=== PATIENT | male | born 1950 | race Caucasian/White ===

== ENCOUNTER → 2017-01-12 | Outpatient (CLI) | payer MEDICARE | END | disposition home or self-care (01) | LOC: CT 15:35 | DX: M51.26 Other intervertebral disc displacement, lumbar region (principal); Z98.1 Arthrodesis status ==

== ENCOUNTER → 2017-01-23 | Outpatient (CLI) | payer MEDICARE ==
[2017-01-23 11:48] LABS: BASO # 0.1 10*3/uL (0.0-0.1); BASO % 0.6 % (0.0-1.0); EOS # 0.5 10*3/uL (0.0-0.4); HEMATOCRIT 40.3 % (42.0-52.0); HEMOGLOBIN 13.4 g/dl (14.0-18.0); LYMPH # 2.3 10*3/uL (1.3-4.4); LYMPH % 22.7 % (27.0-41.0); MEAN CELL VOLUME 80.3 fl (80.0-94.0); MEAN CORPUSCULAR HGB 26.7 pg (27.0-31.0); MEAN CORPUSCULAR HGB CONC 33.3 g/dl (33.0-37.0); MEAN PLATELET VOLUME 9.1 fl (9.6-12.3); MONO # 0.9 10*3/uL (0.1-1.0); MONO % 8.3 % (3.0-9.0); NEUT # 6.4 10*3/uL (2.3-7.9); NEUT % 62.8 % (47.0-73.0); PLATELET COUNT AUTOMATED 344 10*3/uL (130-400); RED BLOOD COUNT 5.02 10*6/uL (4.50-5.90); WHITE BLOOD COUNT 10.2 10*3/uL (4.8-10.8)
== END ==
LOC: LAB 11:18
PROVIDERS: Physician Assistant
DX: M65.88 Other synovitis and tenosynovitis, other site (principal); M25.541 Pain in joints of right hand; M25.441 Effusion, right hand

== ENCOUNTER → 2017-04-14 | Outpatient (CLI) | payer MEDICARE ==
[2017-04-14 09:46] LABS: BASO # 0.1 10*3/uL (0.0-0.1); BASO % 0.8 % (0.0-1.0); EOS # 0.4 10*3/uL (0.0-0.4); EOS % 3.5 % (1.0-4.0); HEMATOCRIT 38.5 % (42.0-52.0); HEMOGLOBIN 12.7 g/dl (14.0-18.0); LYMPH # 4.1 10*3/uL (1.3-4.4); LYMPH % 32.6 % (27.0-41.0); MEAN CORPUSCULAR HGB 26.4 pg (27.0-31.0); MEAN PLATELET VOLUME 8.7 fl (9.6-12.3); MONO # 0.8 10*3/uL (0.1-1.0); MONO % 6.3 % (3.0-9.0); PLATELET COUNT AUTOMATED 322 10*3/uL (130-400); RED BLOOD COUNT 4.81 10*6/uL (4.50-5.90); WHITE BLOOD COUNT 12.4 10*3/uL (4.8-10.8)
[2017-04-15 06:10] LABS: HEPATITIS B SURFACE AG Negative (Negative); HEPATITIS C VIRUS ANTIBODY <0.1 s/co (0.0-0.9)
[2017-04-15 07:06] LABS: RHEUMATOID ARTHRITIS FACTOR 98.2 IU/mL (0.0-13.9)
[2017-04-16 14:05] LABS: LUPUS DRVVT 42.6 sec (0.0-47.0); PTT-LA 32.5 sec (0.0-51.9)
[2017-04-16 15:07] LABS: LUPUS REFLEX INTERPRETATION Comment: (.)
[2017-04-17 00:04] LABS: CCP ANTIBODIES IGG/IGA 7 units (0-19)
[2017-04-17 10:04] LABS: ANTI-RNP ANTIBODIES <0.2 AI (0.0-0.9); ANTI-SMITH ANTIBODIES <0.2 AI (0.0-0.9)
== END | disposition home or self-care (01) ==
LOC: LAB 09:15
PROVIDERS: Orthopaedic Surgery
DX: M25.50 Pain in unspecified joint (principal); R53.83 Other fatigue

== ENCOUNTER → 2018-04-02 | Outpatient (CLI) | payer MEDICARE | END | disposition home or self-care (01) | LOC: WOUNDCARE 00:36 | DX: E11.621 Type 2 diabetes mellitus with foot ulcer (principal); L97.522 Non-pressure chronic ulcer of other part of left foot with fat layer exposed; E11.42 Type 2 diabetes mellitus with diabetic polyneuropathy; E78.5 Hyperlipidemia, unspecified; Z79.4 Long term (current) use of insulin ==

== ENCOUNTER → 2018-04-10 | Outpatient (CLI) | payer MEDICARE | END | disposition home or self-care (01) | LOC: WOUNDCARE 01:57 | DX: E11.621 Type 2 diabetes mellitus with foot ulcer (principal); L97.521 Non-pressure chronic ulcer of other part of left foot limited to breakdown of skin; L84 Corns and callosities; E11.42 Type 2 diabetes mellitus with diabetic polyneuropathy; E78.5 Hyperlipidemia, unspecified ==

== ENCOUNTER → 2018-05-11 | Outpatient (CLI) | payer MEDICARE | LOC: RAD 10:07 | DX: R05 Cough (principal); R91.8 Other nonspecific abnormal finding of lung field ==

== ENCOUNTER 2019-12-22 12:07 | Emergency (ER) | payer MEDICARE ==
[~2019-12-22] VITALS: Ht 182.8 cm; Wt 127.9 kg
[2019-12-22] MEDS ORDERED: PREDNISONE20 M1 PO (12:47)
[2019-12-22] MEDS ORDERED: ACYCLOVIR800 MG PO (12:47)
== END 2019-12-22 12:59 | disposition home or self-care (01) ==
LOC: ED 12:07
DX: G51.0 Bell's palsy (principal)

== ENCOUNTER 2024-08-31 12:36 | Emergency (ER) | payer OTHER ==
[~2024-08-31] VITALS: Ht 182.8 cm; Wt 110.2 kg
[~2024-08-31 12:36] MED LIST: ACYCLOVIR800 MG PO; CEPHALEXIN500 M1 PO; GLIPIZIDE10 M2 PO; LANTUS SOL100 UNIT/1 SC; LISINOPRIL10 M1 PO; MAGNESIUM400 M1 PO; NEURONTIN300 MG PO; PREDNISONE20 M1 PO; ROSUVASTATIN CA40 MG PO
== END 2024-08-31 14:57 | disposition home or self-care (01) ==
LOC: ED 12:36
DX: S40.011A Contusion of right shoulder, initial encounter (principal); G62.9 Polyneuropathy, unspecified; Z79.899 Other long term (current) drug therapy; Z79.84 Long term (current) use of oral hypoglycemic drugs; Z79.4 Long term (current) use of insulin; W18.39XA Other fall on same level, initial encounter; Y93.89 Activity, other specified; Y92.89 Other specified places as the place of occurrence of the external cause; Y99.8 Other external cause status

== ENCOUNTER 2025-02-20 13:38 | Emergency (ER) | payer OTHER ==
[~2025-02-20] VITALS: Ht 175.2 cm; Wt 104.3 kg
== END 2025-02-20 14:17 | disposition home or self-care (01) ==
LOC: ED 13:38
DX: S01.93XA Puncture wound without foreign body of unspecified part of head, initial encounter (principal); I10 Essential (primary) hypertension; E78.5 Hyperlipidemia, unspecified; E11.40 Type 2 diabetes mellitus with diabetic neuropathy, unspecified; W19.XXXA Unspecified fall, initial encounter; Y93.89 Activity, other specified; Y92.89 Other specified places as the place of occurrence of the external cause; Y99.8 Other external cause status